=== PATIENT | female | born 1975 | race Caucasian/White ===

== ENCOUNTER 2024-05-10 12:32 | Outpatient (CLI) | payer BC, SELFPAY ==
--- NOTE | 2024-05-10 13:00 | MR_ITS ---
WS: [id number] MRI BRAIN WITHOUT CONTRAST HISTORY: RIGHT arm numbness. COMPARISON: None available. TECHNIQUE: Diffusion imaging, multiplanar T1, T2 and FLAIR imaging obtained. No evidence for acute infarct or hemorrhage. Galindo-white matter differentiation is normal. No remote or acute infarcts are volume loss. Ventricles and extra-axial spaces are normal. No inferior displacement of cerebellar tonsils. The sella turcica and pituitary gland are unremarkabl e. Dural venous sinuses and [place] demonstrate no abnormality on this unenhanced studies. Paranasal sinuses: Tiny amount of mucoperiosteal thickening in the maxillary sinuses. Mastoid air cells: Normal. Calvarium and scalp: Intact. MR/MR head wo con* [id number] IMPRESSION: 1. Unremarkable noncontrast MRI brain. 2. No acute infarct and no signal abnormality within the brain.
--- NOTE | 2024-05-10 13:45 | MR_ITS ---
WS: [id number] MRI CERVICAL SPINE NONCONTRAST HISTORY: RIGHT arm numbness. COMPARISON: None available. Technique: Multiplanar, multisequence noncontrast imaging of the cervical spine. Normal cervical alignment with no compression fracture or significant disc space narrowing. Signal within the cervical cord is normal. Visualized posterior fossa is unremarkable. Craniocervical junction, C1 and C2 relationship, odontoid process and soft tissues are normal. C2-C3: Normal. C3-C4: Normal. C4-C5: Mild annular disc bulging, asymmetric to the RIGHT. There is a small RIGHT foraminal disc oste ophyte complex on causing only minimal narrowing. C5-C6: Mild osteophytic ridging and a shallow RIGHT foraminal disc osteophyte. Mild RIGHT foraminal n arrowing. C6-C7: Normal. C7-T1: Very small RIGHT foraminal osteophyte. Mild proximal foraminal stenosis. Paraspinal soft tissue are normal. T2 hemangioma. MR/MR cervical spin wo con* [id number] IMPRESSION: 1. No signal abnormality in the cervical cord. 2. Very small disc osteophyte complexes in the RIGHT foramina of C4-5, C5-6 an d C7-T1 with mild foraminal stenosis.
== END 2024-05-10 12:33 | disposition home or self-care (01) ==
LOC: RAD 12:36
PROVIDERS: Visit Provider Specialist
DX: R29.898 Other symptoms and signs involving the musculoskeletal system (principal); G43.009 Migraine without aura, not intractable, without status migrainosus; R56.9 Unspecified convulsions
CPT/HCPCS: 70551; 72141